=== PATIENT | female | born 1955 | race Caucasian/White ===

== ENCOUNTER 2021-08-16 16:23 | Outpatient (CLI) | payer MEDICARE, SELFPAY | END 2021-08-16 16:24 | disposition home or self-care (01) | LOC: AMB 08-27 08:41 | PROVIDERS: PCP Family Medicine; Visit Provider Emergency Medicine | DX: R53.1 Weakness (principal); R62.7 Adult failure to thrive | CPT/HCPCS: A0425; A0427 ==

== ENCOUNTER 2021-08-16 17:01 | Inpatient (IN) | payer MEDICARE, SELFPAY ==
[2021-08-16] VITALS (7 sets, daily range): BP systolic 56–124; BP diastolic 41–84; PULSE 84–98; RESP 14–20; TEMP 36.3–36.6; O2SAT 94–98; BMI 25.4
--- NOTE | 2021-08-16 19:12 | ED.NURSE ---
1909-Report received from Genna, RN. Sats 88-89% on RA. O2 applied via NC 2LPM, Sats 96%. 1911- MD at bedside for exam. Brother at bedside.
--- NOTE | 2021-08-16 19:17 | CRLHL7_ITS ---
For Patients: As a result of the Century Cures Act, medical imaging exams and procedure reports are released immediately into your electronic medical record. You may view this report before your referring provider. If you have questions, please contact your health care provider. INDICATION: Shortness of breath. TECHNIQUE: Chest 1 views. COMPARISON: June 29, 2014. FINDINGS: Cardiovascular and mediastinum: Heart size and vasculature are normal in caliber and appearance. Lungs and pleural spaces: Left lower lobe, retrocardiac opacity is noted. Small left-sided pleural effusion. Bones and soft tissues: Demineralization of the visualized bones. Irregularity of some right-sided ribs may be related to rib fracture, incompletely evaluated on this single view... IMPRESSION: Left lower lobe opacity may be related to atelectasis aspiration or infection. Small left pleural effusion. Irregularity of some ribs may be related to underlying fracture, incompletely evaluated on this single view of the chest. Dictated by Rebecca Ferro MD @ 08/16/2021 8:34:17 PM (Electronically Signed)
--- NOTE | 2021-08-16 19:19 | ED_ITS ---
HPI - General Adult General Time Seen by Provider: 19:18 Date Seen: 08/16/21 Chief complaint: Unspecified Complaint, Adult Stated complaint: Failure to Thrive Time Seen by Provider: 08/16/21 19:07 Source: patient and family History of Present Illness HPI narrative: This 65-year-old female comes in with her brother because of failure to thrive. The patient herself is very hard of hearing and repeatedly states that she is fine and wants to go home. Her brother states that she fell a couple months ago and injured her ribs. Since then her mother who is in her 80s has been coming every day to check on her. The patient lives alone in an apartment and has a history of alcoholism. She weighs less than 70 lb and has been losing weight. Her brother does not know how she could be able to care for herself. The current scenario of her elderly mother coming over every day is not working sufficiently. Her brother states that she is DNR DNI and does not wish to have any her row can measures in treatment. Related Data Home Medications Medication Instructions Recorded Confirmed gabapentin 300 mg capsule 300 mg PO .Q24 08/16/21 08/16/21 Review of Systems Narrative: Unable to obtain due to hardness of hearing and mental status. The patient repeatedly states that she is fine and wants to go home. PFSH PFSH Social History Smoking Status: Current every day smoker What tobacco products do you use: cigarettes Do you use any of these nicotine containing products: Vaping Products Second hand tobacco smoke exposure: No How often do you have a drink containing alcohol: 4 or more times a week How many standard drinks containing alcohol do you have on a typical day: 3 or 4 How often do you have six or more drinks on one occasion: Less than monthly AUDIT-C Alcohol total score: 6 Non-prescribed substance use: marijuana (any form) Exam 2 Narrative: Exam Narrative: Constitutional: Cachectic. Poorly nourished. No acute distress. HEENT: Normocephalic, atraumatic. Neck: Normal range of motion. Nontender. Supple. Heart: Regular. No murmurs. Normal rate. Intact distal pulses. Lungs: No chest discomfort. Bilateral rhonchi. Abdomen: Normal bowel sounds. Nontender. No rebound tenderness. Genitalia: Deferred. Back: No midline tenderness. Normal range of motion. Extremities: Normal range of motion. No injury. Skin: Intact. No rash. Warm. No erythema or pallor. Neurologic: No altered sensation. No weakness. Alert and oriented. Very hard of hearing. Psychiatric: No suicidality. No anxiety or depression. No insomnia. Nursing notes and vitals signs are reviewed. Const: Vital Signs, click to edit/add: Vital Signs - 24 hr 08/16/21 17:18 08/16/21 19:15 Temperature 97.3 F L Pulse Rate [Right Pulse Oximeter] 90 98 Respiratory Rate 20 20 Blood Pressure [Le ft Upper Arm] 56/41 L 108/73 Pulse Oximetry 98 96 Course Vital Signs Vital signs: Initial Vital Signs Temperature 97.3 F L 08/16/21 17:18 Temperature Source Temporal Artery Scan 08/16/21 17:18 Pulse Rate 90 08/16/21 17:18 Respiratory Rate 20 08/16/21 17:18 Blood Pressure 56/41 L 08/16/21 17:18 Blood Pressure Mean 46 08/16/21 17:18 Blood Pressure Position Right Lateral 08/16/21 17:18 Pulse Oximetry 98 08/16/21 17:18 Oxygen Delivery Method 08/16/21 17:18 Vital Signs Temperature 97.3 F L 08/16/21 17:18 Pulse Rate 90 08/16/21 17:18 Respiratory Rate 20 08/16/21 17:18 Blood Pressure 56/41 L 08/16/21 17:18 Pulse Oximetry 98 08/16/21 17:18 Temperature 97.3 F L 08/16/21 17:18 Pulse Rate 98 08/16/21 19:15 Respiratory Rate 20 08/16/21 19:15 Blood Pressure 108/73 08/16/21 19:15 Pulse Oximetry 96 08/16/21 19:15 Medical Decision Making MDM Narrative Medical decision making narrative: This patient comes in with her brother because of weakness and failure to thrive. An IV was established where she received a L of normal saline intravenously. Lab results returned with notable abnormalities in her electrolytes. In particular her sodium is at 121. I spoke with the hospitalist instrumentation and controls technician, Dr. Fisher, who will arrange for her admission to attend to this matter. Lab Data Lab results reviewed: Yes I reviewed the patient's lab results Labs: Lab Results 08/16/21 08/16/21 Range/Units 20:02 20:02 WBC 12.37 H (4.50-11.00) K/uL RBC 4.07 (4.00-5.20) m/uL Hgb 13.7 (12.0-16.0) gm/dL Hct 39.6 (33.0-51.0) % MCV 97 (80-100) fL MCH 34 (26-34) pg MCHC 35 (32-36) gm/dL RDW Coeff of Amada 12.4 (11.5-15.5) % Plt Count 180 (140-440) K/uL Neut % (Auto) 86.6 H (42.0-72.0) % Lymph % (Auto) 7.4 L (20-44) % Jewell % (Auto) 5.6 (0.0-11.0) % Eos % (Auto) 0.0 (0.0-7.0) % Baso % (Auto) 0.0 (0.0-3.0) % Neut # (Auto) 10.70 H (1.7-7.0) K/uL Lymph # (Auto) 0.90 (0.90-2.90) K/uL Jewell # (Auto) 0.70 (0.00-0.90) K/UL Eos # (Auto) 0.00 (0.00-0.50) K/uL Baso # (Auto) 0.00 (0.00-0.30) K/uL Abs Immat Gran (auto) 0.05 (0.00-0.30) K/uL Sodium 121 L* (135-149) mmol/L Potassium 3.2 L (3.6-5.1) mmol/L Chloride 91 L (96-114) mmol/L Carbon Dioxide 19 L (20-32) mmol/L BUN 5 L (7-30) mg/dL Creatinine 0.4 L (0.5-1.5) mg/dL Glucose 54 L (60-115) mg/dL Calcium 7.2 L (8.4-10.6) mg/dL Total Bilirubin 1.2 (0.1-1.5) mg/dL Direct Bilirubin 0.5 (0.0-0.5) mg/dL AST 37 H (12-35) U/L ALT 15 (4-35) U/L Alkaline Phosphatase 65 (40-150) U/L Ammonia < 9.0 L (13.1-30.0) umol/L Total Protein 5.0 L (6.0-8.3) g/dL Albumin 2.9 L (3.3-5.0) g/dL Imaging Data Chest x-ray: My impression: Chest x-ray shows decreased lung volume on the left with some small amount of effusion by my review. Bowel G report is pending. Discharge Plan Discharge Clinical Impression: Hyponatremia Patient Disposition: Admitted As Inpatient Condition: Unchanged Prescriptions: No Action gabapentin 300 mg capsule 300 mg PO .Q24 0RF Label Comments: TAKE ONE CAPSULE BY MOUTH TWICE A DAY *FOLLOW UP NEEDED* Follow Up/Referrals: Tim Rodrigez MD [Primary Care Provider] -
[2021-08-16] MEDS: 0.9 % SODIUM CHLORIDE 1000 ml 1,000 ML IV (19:45)
[2021-08-16 20:08] LABS: Hematocrit 39.6 % (33.0-51.0); Hemoglobin* 13.7 gm/dL (12.0-16.0); Immature Granulocytes Abs Auto 0.05 K/uL (0.00-0.30); Lymphocytes Percent Auto 7.4 % (20-44); Mean Corpuscular HGB Conc 35 gm/dL (32-36); Mean Corpuscular Hemoglobin 34 pg (26-34); Mean Corpuscular Volume 97 fL (80-100); Monocytes Percent Auto 5.6 % (0.0-11.0); Neutrophils Percent Auto 86.6 % (42.0-72.0); Platelet Count* 180 K/uL (140-440); RDW Coefficient of Variation % 12.4 % (11.5-15.5); Red Blood Count 4.07 m/uL (4.00-5.20); White Blood Count* 12.37 K/uL (4.50-11.00)
[2021-08-16 20:09] LABS: Slide Review Reflex No
[2021-08-16 20:23] LABS: Albumin* 2.9 g/dL (3.3-5.0); Chloride* 91 mmol/L (96-114)
[2021-08-16 20:24] LABS: Potassium* 3.2 mmol/L (3.6-5.1)
[2021-08-16 20:25] LABS: Creatinine* 0.4 mg/dL (0.5-1.5); Estimated Glomerular Filt Rate 108.41
[2021-08-16 20:26] LABS: Alanine Aminotransferase* 15 U/L (4-35); Alkaline Phosphatase* 65 U/L (40-150); Aspartate Amino Transferase* 37 U/L (12-35); Bilirubin Direct* 0.5 mg/dL (0.0-0.5); Bilirubin Total* 1.2 mg/dL (0.1-1.5); Blood Urea Nitrogen* 5 mg/dL (7-30); Calcium* 7.2 mg/dL (8.4-10.6); Carbon Dioxide* 19 mmol/L (20-32); Glucose* 54 mg/dL (60-115)
[2021-08-16 20:28] LABS: Ammonia* < 9.0 umol/L (13.1-30.0); Sodium* 121 mmol/L (135-149)
[2021-08-16 20:54] LABS: SARS PCR* Negative SARS-CoV-2 (Negative)
[2021-08-16 21:08] LABS: Magnesium* 1.4 mg/dL (1.5-2.6)
--- NOTE | 2021-08-16 21:23 | P.IMHP_ITS ---
Hospitalist- H&P: HPI History of Present Illness Time Seen by Provider: 21:00 Date Seen: 08/16/21 Chief complaint: Failure to Thrive Narrative: Elizabeth Flanagan is a 65 year old female presents to the emergency room with her brother because of failure to thrive. Patient reports that she has no problems and would like to go home. Her brother reports that she has had a problem with falling. She apparently fell and injured her ribs a couple months ago by his re port. She tells me she fell a couple weeks ago. She lives alone and her family is concerned she cannot take care of herself. Family reports she has been losing weight. Our records indicate her last weight was May of 2014 at 40.8 kg and now weighs 36.3 kg. She denies any problems with eating, loss of appetite, nausea or vomiting, diarrhea or constipation, bloody stools or melena. she does report that she has chronic shortness of breath and a chronic cough. She thinks her shortness of breath may be worse more recently. She is not aware of a fever. She has chest pain where she hurt her ribs in the recent past. She tells me she has pain on the left side of her chest in the front and in the back. Review of Systems Narrative: she reports having no concerns except as noted above. She reports she is doing well at home. [facility] Medical History Alcohol abuse At risk for falls Foot drop, right Frailty syndrome in geriatric patient Left rib fracture Loss of consciousness Malnutrition Neuropathy Smoking Social History (Updated 08/16/21 @ 21:40 by Alexx Fisher MD) Narrative: She lives alone in her own home. Her mother checks on her every day. She has no primary care doctor. She previously saw a neurologist for management of her neuropathy and footdrop and her spells. It appears she has not seen a doctor in at least 2 years. she walks with a walker or a cane . She does not drive. She has a cab to get groceries. Smoking Status: Current every day smoker What tobacco products do you use: cigarettes Do you use any of these nicotine containing products: Vaping Products Second hand tobacco smoke exposure: No How often do you have a drink containing alcohol: 4 or more times a week How many standard drinks containing alcohol do you have on a typical day: 3 or 4 How often do you have six or more drinks on one occasion: Less than monthly AUDIT-C Alcohol total score: 6 Non-prescribed substance use: marijuana (any form) Meds Home Medications and Allergies Home Medications Medication Instructions Recorded Confirmed Type gabapentin 300 mg capsule 300 mg PO .Q24 08/16/21 08/16/21 History Exam Narrative: Exam Narrative: She is alert and appears in no distress. Head is without apparent trauma. Eyes are normal. She has bilateral cataracts. Pupils are equal round reactive to light. Extraocular movements are full. Visual simmons appear intact. Oropharynx with dental loss and dry mucous membranes. She has no facial asymmetry. She is very hard of hearing. Neck is supple without mass or adenopathy. Respirations with a few left basilar crackles. She has somewhat diminished breath sounds without marked wheezing. Cardiovascular: S1, S2, regular rate and rhythm. No murmur gallop or rub. Abdomen: Bowel sounds active. Abdomen is soft without tenderness or mass. External genitalia normal. Palpation over her back and chest wall shows tenderness from the mid back around the left ribs to the anterolateral left chest below her left breast. No obvious bruising. Extremities are somewhat cool to touch. She has intact sensation but reports diminished sensation in her left foot due to neuropathy. She moves all 4 extremities well without focal weakness. She has no edema. No rash Const: Vital Signs, click to edit/add: Vital Signs - 24 hr 08/16/21 17:18 08/16/21 19:15 08/16/21 20:00 Temperature 97.3 F L Pulse Rate [Right Pulse Oximeter] 90 98 85 Respiratory Rate 20 20 14 Blood Pressure [Le ft Upper Arm] 56/41 L 108/73 114/80 Pulse Oximetry 98 96 94 Documenting provider has reviewed patient's vital signs: yes Hospitalist - H&P: Result Labs Labs: Short CBC 08/16/21 Range/Units 20:02 WBC 12.37 H (4.50-11.00) K/uL Hgb 13.7 (12.0-16.0) gm/dL Hct 39.6 (33.0-51.0) % Plt Count 180 (140-440) K/uL BMP 08/16/21 20:02 Sodium 121 L* Potassium 3.2 L Chloride 91 L Carbon Dioxide 19 L BUN 5 L Creatinine 0.4 L Glucose 54 L Calcium 7.2 L Liver Function 08/16/21 Range/Units 20:02 Total Bilirubin 1.2 (0.1-1.5) mg/dL Direct Bilirubin 0.5 (0.0-0.5) mg/dL AST 37 H (12-35) U/L ALT 15 (4-35) U/L Alkaline Phosphatase 65 (40-150) U/L Albumin 2.9 L (3.3-5.0) g/dL Assessment and Plan Assessment and plan (1) Left rib fracture: Problem comment: clinically suspected and radiographically suspected Status: Acute Assessment and Plan: obtain CT scan to further evaluate for chest wall injury and underlying infiltrate or pleural effusion. (2) At risk for falls: Status: Acute Assessment and Plan: PT and OT to assess (3) Smoking: Status: Acute Assessment and Plan: may have underlying COPD. Chest CT pending. Trial albuterol (4) Alcohol abuse: Status: Acute Assessment and Plan: [facility] protocol (5) Malnutrition: Status: Acute Assessment and Plan: nutrition consult (6) Hyponatremia: Status: Acute Assessment and Plan: likely chronic. Slow correction recommended. Fluid restriction. Likely contributing to other problems above. I suspect dietary causes including alcohol and tea and toast diet as major contributors. (7) Frailty syndrome in geriatric patient: Status: Acute Assessment and Plan: consult director social service for discharge plan
[2021-08-16 22:23] LABS: D Dimer Quantitative* 0.57 ug/ml (0.00-0.50)
--- NOTE | 2021-08-16 22:41 | ED.NURSE ---
2210-Report given to CARITO Bruce. Pt transported via cart to Rm 259 on O2 2LPM via NC, tolerates well. No belongings in room.
[2021-08-16 22:54] LABS: Sodium* 122 mmol/L (135-149)
[2021-08-16 23:41] LABS: Procalcitonin* 0.09 ng/mL (<0.50)
[2021-08-17] VITALS (9 sets, daily range): BP systolic 87–120; BP diastolic 63–77; PULSE 84–107; RESP 18–22; TEMP 36.1–36.9; O2SAT 91–96; BMI 11.2
[2021-08-17] MEDS: MAGNESIUM SULFATE 2 GM/50 ML PIGGYBACK IVPB (00:22)
[2021-08-17] MEDS: POTASSIUM CHLORIDE 10 MEQ CAPSULE ER 40 MEQ PO (00:23)
[2021-08-17 05:25] LABS: Appearance Urine Slightly Cloudy (Clear); Bilirubin Urine 1+ (Negative); Blood Urine Negative (Negative); Color Urine Yellow (Yellow); Glucose Urine Negative (Negative); Ketones Urine 4+ (Negative); Leukocyte Esterase Urine Negative (Negative); Nitrite Urine Negative (Negative); Protein Urine Trace (Negative); Specific Gravity Urine >= 1.030 (1.000-1.030)
[2021-08-17 05:34] LABS: RBC Urine 0-2 (0-2); WBC Urine 0-2 (0-5)
[2021-08-17 05:35] LABS: Amorphous Sediment Urine Few; Bacteria Urine Moderate; Hyaline Casts Urine Few (None-Few); Squamous Epithelial Cell Urine Moderate (None-Few)
[2021-08-17 05:37] LABS: Amphetamine Screen Urine Negative (Negative); Barbiturate Screen Urine Negative (Negative); Benzodiazepines Screen Urine Negative (Negative); Cannabinoid Screen Urine POSITIVE (Negative); Cocaine Screen Urine Negative (Negative); Methadone Screen Urine Negative (Negative); Methamphetamines Screen Urine Negative (Negative); Opiate Screen Urine Negative (Negative); Oxycodone Screen Urine Negative (Negative); Phencyclidine Screen Urine Negative (Negative); Tricyclic Antidepressant Urine Negative (Negative)
--- NOTE | 2021-08-17 07:27 | PC.NURSE ---
Shift note: The pt has been on 2L of oxygen via NC throughout the night with Spo2 in the 90s. She has been reporting mild right lateral pain. Stage 2 ulcer noted to left thigh ; covered with Mepilex. She has been turned and repositioned. The pt [place] 1-ass[place] [facility] [place] She appeared weak and lethargic.
--- NOTE | 2021-08-17 08:00 | CRLHL7_ITS ---
For Patients: As a result of the Century Cures Act, medical imaging exams and procedure reports are released immediately into your electronic medical record. You may view this report before your referring provider. If you have questions, please contact your health care provider. Indication: Evaluate infiltrate, question rib fracture, effusion. Technique: CT of the chest without IV contrast. Coronal and sagittal reconstructions. Comparison: Chest radiograph 08/16/2021. Findings: Normal heart size. Normal caliber thoracic aorta and central pulmonary arteries. Coronary artery and aortic vascular calcifications. Mitral annulus calcifications. No pericardial effusion. No thoracic lymphadenopathy. The thyroid gland is normal in appearance. Small left pleural effusion. There is a dense consolidation with air bronchograms in the left lower lobe compatible with pneumonia. Subtle nodular ground-glass opacities in the left lower lobe and posterior left upper lobe are likely infectious or inflammatory. Atelectasis along the left major fissure. Right apical pleural scarring. No pneumothorax. 3 mm noncalcified pulmonary nodule in the posterior right upper lobe (series 4, image 26). 2 mm noncalcified pulmonary nodule in the superior segment of the right lower lobe (image 30). 2 mm noncalcified pulmonary nodule in the lateral right lower lobe (image 65). Debris in the lower trachea. The visualized unenhanced upper abdomen is unremarkable. Degenerative changes of the spine with exaggerated thoracic kyphosis. There are multiple moderate to severe thoracic and lumbar compression fractures, most of which appear chronic. There is sclerosis in the T7 and T9 vertebral bodies which could suggest acute or subacute fractures. No significant retropulsion. Old left lateral rib fractures. No acute rib fracture identified. Impression: 1. Dense consolidation with air bronchograms in the left lower lobe compatible with pneumonia. Debris in the lower trachea suggesting aspiration. 2. Subtle nodular ground-glass opacities in the left lower lobe and posterior left upper lobe are likely infectious or inflammatory. 3. Small left pleural effusion. 4. Few small noncalcified pulmonary nodules measuring up to 3 mm. Please see follow-up guidelines below. 5. Multiple moderate to severe thoracic and lumbar compression fractures. Fractures of the T7 and T9 vertebral bodies may be acute or subacute. [employer] - SOLID NODULES: : MULTIPLE LOW RISK - nodule less than 6 mm: No routine follow-up. - nodule 6-8 mm: CT at 3-6 months, then consider CT at 18-24 months. - nodule greater than 8 mm: CT at 3-6 months, then consider CT at 18-24 months. MULTIPLE HIGH RISK - nodule less than 6 mm: Optional CT at 12 months. - nodule 6-8 mm: CT at 3-6 months, then at 18-24 months. - nodule greater than 8 mm: CT at 3-6 months, then at 18-24 months. Please note that all CT scans at this facility use dose modulation, iterative reconstruction, and/or weight-based dosing when appropriate to reduce radiation dose to as low as reasonably achievable. Dictated by Magy Duffy MD @ 08/17/2021 9:08:34 AM (Electronically Signed)
[2021-08-17] MEDS: MULTIVITAMIN/MINERALS 1 TABLET 1 TAB PO (10:00)
[2021-08-17] MEDS: FOLIC ACID 1 MG TABLET PO (10:00)
[2021-08-17] MEDS: SENNOSIDES/DOCUSATE TABLET 1 TAB PO (10:01)
[2021-08-17] MEDS: THIAMINE 100 MG TABLET 250 MG PO ×2 (10:06→21:20)
[2021-08-17] MEDS: IPRAT-ALBUT 0.5-2.5 MG/3 ML NEB 1 NEB IH ×4 (10:06→21:21)
[2021-08-17] MEDS: GABAPENTIN 300 MG CAPSULE PO ×2 (10:08→21:21)
[2021-08-17 11:28] LABS: Hematocrit 39.9 % (33.0-51.0); Hemoglobin* 13.8 gm/dL (12.0-16.0); Immature Granulocytes Abs Auto 0.05 K/uL (0.00-0.30); Lymphocytes Percent Auto 5.3 % (20-44); Mean Corpuscular HGB Conc 35 gm/dL (32-36); Mean Corpuscular Hemoglobin 34 pg (26-34); Mean Corpuscular Volume 98 fL (80-100); Monocytes Percent Auto 6.7 % (0.0-11.0); Neutrophils Percent Auto 87.7 % (42.0-72.0); Platelet Count* 192 K/uL (140-440); RDW Coefficient of Variation % 12.4 % (11.5-15.5); Red Blood Count 4.08 m/uL (4.00-5.20); White Blood Count* 14.36 K/uL (4.50-11.00)
[2021-08-17 11:29] LABS: Slide Review Reflex No
[2021-08-17 11:46] LABS: Albumin* 3.2 g/dL (3.3-5.0)
[2021-08-17 11:47] LABS: Chloride* 95 mmol/L (96-114); Sodium* 126 mmol/L (135-149)
[2021-08-17 11:49] LABS: Aspartate Amino Transferase* 41 U/L (12-35); Bilirubin Total* 1.2 mg/dL (0.1-1.5); Carbon Dioxide* 17 mmol/L (20-32); Creatinine* 0.4 mg/dL (0.5-1.5); Est. Creatinine Clearance* 27.17; Estimated Glomerular Filt Rate 108.41
[2021-08-17 11:50] LABS: Alanine Aminotransferase* 17 U/L (4-35); Alkaline Phosphatase* 71 U/L (40-150); Blood Urea Nitrogen* 4 mg/dL (7-30); Calcium* 7.8 mg/dL (8.4-10.6); Glucose* 64 mg/dL (60-115); Total Protein* 5.4 g/dL (6.0-8.3)
--- NOTE | 2021-08-17 12:20 | P.IMPN_ITS ---
Progress Note: A&P Assessment and plan (1) Vertebral compression fracture: Status: Acute Assessment and Plan: Still having midline back pain in the lower thoracic spine on palpation indicating probable some recent fracture (2) Left rib fracture: Problem details: clinically suspected and radiographically suspected Status: Acute Assessment and Plan: still having tenderness over her left-sided ribs but fractures are probably 1 to 2-month-old (3) Frailty syndrome in geriatric patient: Status: Acute Assessment and Plan: continue to assess. Appears not to be safe to live alone based on frailty and dementia (4) Left lower lobe pulmonary infiltrate: Status: Acute Assessment and Plan: ceftriaxone and azithromycin (5) Hypokalemia: Status: Acute Assessment and Plan: continue to monitor and replace (6) Hypomagnesemia: Status: Acute Assessment and Plan: continue to monitor and replace (7) Dementia: Problem details: [place] 02/15 in July 2021 Status: Acute Assessment and Plan: probably not safe to be independent (8) At risk for falls: Status: Acute Assessment and Plan: continue to assess (9) Alcohol abuse: Status: Acute Assessment and Plan: likely to be an ongoing problem if patient remains independent (10) Malnutrition: Status: Acute Assessment and Plan: continues to be a problem (11) Hyponatremia: Status: Acute Assessment and Plan: continue to monitor and manage with fluid restriction Subjective Time Seen by Provider: 12:19 Date Seen: 08/17/21 Interval history: patient reports feeling fine. She has no concerns. When pressed she does agree that she is short of breath and coughing. She has had nothing to eat today because she reports no appetite. This does not bother her. She minimizes the pain in her back and ribs. CT scan last night showed left lower lobe pneumonia, pulmonary nodules, multiple vertebral and lumbar compression fractures, old left rib fractures, debris in the trachea suggesting aspiration. OT evaluation scored a [place] of 02/15. Exam Narrative: Exam Narrative: She is alert and appears in no distress. Hard of hearing but communicates much better with the pocket talker. Respirations notable for audible rhonchi without a stethoscope and prominent left-sided crackles. No wheezing. Cardiovascular: S1, S2, regular rhythm. Abdomen: Bowel sounds active. Abdomen is soft without tenderness or mass. External genitalia normal. Extremities without edema or tenderness. Still cool extremities. Const: Vital Signs, click to edit/add: Vital Signs - 24 hr 08/16/21 17:18 08/16/21 19:15 08/16/21 20:00 Temperature 97.3 F L Pulse Rate Pulse Rate [Bilate ral Dorsalis Pedis ] Pulse Rate [Right Pulse Oximeter] 90 98 85 Pulse Rate [Right Radial] Respiratory Rate 20 20 14 Blood Pressure Blood Pressure [Le ft Arm] Blood Pressure [Le ft Upper Arm] 56/41 L 108/73 114/80 Pulse Oximetry 98 96 94 08/16/21 21:00 08/16/21 22:00 08/16/21 22:10 Temperature 97.3 F L Pulse Rate 87 Pulse Rate [Bilate ral Dorsalis Pedis ] Pulse Rate [Right Pulse Oximeter] 87 87 Pulse Rate [Right Radial] Respiratory Rate 14 14 14 Blood Pressure 93/72 Blood Pressure [Le ft Arm] Blood Pressure [Le ft Upper Arm] 124/84 93/72 Pulse Oximetry 97 96 08/16/21 22:56 08/17/21 00:50 08/17/21 01:00 Temperature 98 F 97.4 F L Pulse Rate Pulse Rate [Bilate ral Dorsalis Pedis ] 90 Pulse Rate [Right Pulse Oximeter] Pulse Rate [Right Radial] 84 90 Respiratory Rate 18 18 18 Blood Pressure Blood Pressure [Le ft Arm] 107/67 97/69 Blood Pressure [Le ft Upper Arm] Pulse Oximetry 95 92 91 08/17/21 04:30 08/17/21 04:35 08/17/21 07:00 Temperature 97.7 F 97.7 F 97.8 F Pulse Rate Pulse Rate [Bilate ral Dorsalis Pedis ] 90 90 98 Pulse Rate [Right Pulse Oximeter] Pulse Rate [Right Radial] 90 90 Respiratory Rate 18 18 22 Blood Pressure Blood Pressure [Le ft Arm] 97/68 97/68 120/76 Blood Pressure [Le ft Upper Arm] Pulse Oximetry 93 93 93 08/17/21 11:00 Temperature 97 F L Pulse Rate Pulse Rate [Bilate ral Dorsalis Pedis ] 94 Pulse Rate [Right Pulse Oximeter] Pulse Rate [Right Radial] Respiratory Rate 22 Blood Pressure Blood Pressure [Le ft Arm] 113/75 Blood Pressure [Le ft Upper Arm] Pulse Oximetry 94 Labs Labs: Laboratory Results - last 24 hr 08/16/21 08/16/21 08/16/21 19:47 20:02 20:02 WBC 12.37 H RBC 4.07 Hgb 13.7 Hct 39.6 MCV 97 MCH 34 MCHC 35 RDW Coeff of Amada 12.4 Plt Count 180 Neut % (Auto) 86.6 H Lymph % (Auto) 7.4 L Marion % (Auto) 5.6 Eos % (Auto) 0.0 Baso % (Auto) 0.0 Neut # (Auto) 10.70 H Lymph # (Auto) 0.90 Marion # (Auto) 0.70 Eos # (Auto) 0.00 Baso # (Auto) 0.00 Abs Immat Gran (auto) 0.05 D-Dimer Quant (PE/DVT) Sodium 121 L* Potassium 3.2 L Chloride 91 L Carbon Dioxide 19 L BUN 5 L Creatinine 0.4 L Estimated Creat Clear Glucose 54 L Calcium 7.2 L Magnesium 1.4 L Total Bilirubin 1.2 Direct Bilirubin 0.5 AST 37 H ALT 15 Alkaline Phosphatase 65 Ammonia < 9.0 L Total Protein 5.0 L Albumin 2.9 L Procalcitonin 0.09 TSH Urine Color Urine Appearance Urine pH Ur Specific [place] Urine Protein Urine Glucose (UA) Urine Ketones Urine Blood Urine Nitrite Urine Bilirubin Urine Urobilinogen Ur Leukocyte Esterase Urine RBC Urine WBC Ur Squamous Epith Cells Amorphous Sediment Urine Bacteria Hyaline Casts Urine Opiates Screen Ur Oxycodone Screen Urine Methadone Screen Ur Propoxyphene Screen Ur Barbiturates Screen U Tricyclic Antidepress Ur Phencyclidine Scrn Ur Amphetamines Screen U Methamphetamines Scrn U Benzodiazepines Scrn Urine Cocaine Screen U Marijuana (THC) Screen Ur Drug Screen Comment SARS-CoV-2 (PCR) Negative SARS-CoV-2 08/16/21 08/16/21 08/16/21 20:02 21:08 22:25 WBC RBC Hgb Hct MCV MCH MCHC RDW Coeff of Amada Plt Count Neut % (Auto) Lymph % (Auto) Marion % (Auto) Eos % (Auto) Baso % (Auto) Neut # (Auto) Lymph # (Auto) Marion # (Auto) Eos # (Auto) Baso # (Auto) Abs Immat Gran (auto) D-Dimer Quant (PE/DVT) 0.57 H Sodium 122 L* Potassium Chloride Carbon Dioxide BUN Creatinine Estimated Creat Clear Glucose Calcium Magnesium Total Bilirubin Direct Bilirubin AST ALT Alkaline Phosphatase Ammonia Total Protein Albumin Procalcitonin TSH 3.600 Urine Color Urine Appearance Urine pH Ur Specific [place] Urine Protein Urine Glucose (UA) Urine Ketones Urine Blood Urine Nitrite Urine Bilirubin Urine Urobilinogen Ur Leukocyte Esterase Urine RBC Urine WBC Ur Squamous Epith Cells Amorphous Sediment Urine Bacteria Hyaline Casts Urine Opiates Screen Ur Oxycodone Screen Urine Methadone Screen Ur Propoxyphene Screen Ur Barbiturates Screen U Tricyclic Antidepress Ur Phencyclidine Scrn Ur Amphetamines Screen U Methamphetamines Scrn U Benzodiazepines Scrn Urine Cocaine Screen U Marijuana (THC) Screen Ur Drug Screen Comment SARS-CoV-2 (PCR) 08/17/21 08/17/21 08/17/21 05:10 05:10 11:20 WBC 14.36 H RBC 4.08 Hgb 13.8 Hct 39.9 MCV 98 MCH 34 MCHC 35 RDW Coeff of Amada 12.4 Plt Count 192 Neut % (Auto) 87.7 H Lymph % (Auto) 5.3 L Marion % (Auto) 6.7 Eos % (Auto) 0.0 Baso % (Auto) 0.0 Neut # (Auto) 12.60 H Lymph # (Auto) 0.80 L Marion # (Auto) 1.00 H Eos # (Auto) 0.00 Baso # (Auto) 0.00 Abs Immat Gran (auto) 0.05 D-Dimer Quant (PE/DVT) Sodium Potassium Chloride Carbon Dioxide BUN Creatinine Estimated Creat Clear Glucose Calcium Magnesium Total Bilirubin Direct Bilirubin AST ALT Alkaline Phosphatase Ammonia Total Protein Albumin Procalcitonin TSH Urine Color Yellow Urine Appearance Slightly Cloudy A Urine pH 6.0 Ur Specific [place] >= 1.030 Urine Protein Trace A Urine Glucose (UA) Negative Urine Ketones 4+ A Urine Blood Negative Urine Nitrite Negative Urine Bilirubin 1+ A Urine Urobilinogen 1.0 Ur Leukocyte Esterase Negative Urine RBC 0-2 Urine WBC 0-2 Ur Squamous Epith Cells Moderate A Amorphous Sediment Few A Urine Bacteria Moderate A Hyaline Casts Few Urine Opiates Screen Negative Ur Oxycodone Screen Negative Urine Methadone Screen Negative Ur Propoxyphene Screen Negative Ur Barbiturates Screen Negative U Tricyclic Antidepress Negative Ur Phencyclidine Scrn Negative Ur Amphetamines Screen Negative U Methamphetamines Scrn Negative U Benzodiazepines Scrn Negative Urine Cocaine Screen Negative U Marijuana (THC) Screen POSITIVE A Ur Drug Screen Comment See Note SARS-CoV-2 (PCR) 08/17/21 11:20 WBC RBC Hgb Hct MCV MCH MCHC RDW Coeff of Amada Plt Count Neut % (Auto) Lymph % (Auto) Marion % (Auto) Eos % (Auto) Baso % (Auto) Neut # (Auto) Lymph # (Auto) Marion # (Auto) Eos # (Auto) Baso # (Auto) Abs Immat Gran (auto) D-Dimer Quant (PE/DVT) Sodium 126 L Potassium 4.0 Chloride 95 L Carbon Dioxide 17 L BUN 4 L Creatinine 0.4 L Estimated Creat Clear 27.17 Glucose 64 Calcium 7.8 L Magnesium Total Bilirubin 1.2 Direct Bilirubin AST 41 H ALT 17 Alkaline Phosphatase 71 Ammonia Total Protein 5.4 L Albumin 3.2 L Procalcitonin TSH Urine Color Urine Appearance Urine pH Ur Specific [place] Urine Protein Urine Glucose (UA) Urine Ketones Urine Blood Urine Nitrite Urine Bilirubin Urine Urobilinogen Ur Leukocyte Esterase Urine RBC Urine WBC Ur Squamous Epith Cells Amorphous Sediment Urine Bacteria Hyaline Casts Urine Opiates Screen Ur Oxycodone Screen Urine Methadone Screen Ur Propoxyphene Screen Ur Barbiturates Screen U Tricyclic Antidepress Ur Phencyclidine Scrn Ur Amphetamines Screen U Methamphetamines Scrn U Benzodiazepines Scrn Urine Cocaine Screen U Marijuana (THC) Screen Ur Drug Screen Comment SARS-CoV-2 (PCR)
[2021-08-17] MEDS: AZITHROMYCIN 250 MG TABLET 500 MG PO (12:36)
[2021-08-17] MEDS: cefTRIAXone 1 GM in 0.9 % SODIUM CHLORIDE Mini-bag 100 ML IVPB (12:36)
--- NOTE | 2021-08-17 15:58 | PC.SOCIAL ---
Social work: Met with pt regarding d/c plan. Pt states she lives in her own apartment at [facility] in [place]. Pt is hoping to return to her apartment at discharge. Pt states she takes care of herself and her household cleaning, cooking and chores by herself and has not required any assistance of family or friends at home. Pt states she has family who are local who could assist if needed but she does not expect to need help at discharge. Pt states she is not interested in a short term rehab stay if she needs assistance at discharge and plans to go home. Pt denies any safety concerns in her home. Received call from pt's brother, Kiel, who states he and the rest of the family do no think pt should be discharged home and are hoping she will agree to placement at a [facility] facility where she will have 24/7 care. Kiel states that prior to about 6 months ago, pt was independent in her own apartment. However, in the past six months, her ability to be mobile and independent has declined. Pt's 89 year old mother visits three times a week and helps pt to adjust in bed and brings her food. Mother reports pt has been in bed and stayed there every time she has visited in the last several weeks. Pt used to keep her apartment clean, but has not cleaned in several weeks. Per brother, pt has a refrigerator full of food but chooses to drink Mountain Dew and Beer instead of eating meals. Brother shared that pt was in substance treatment many years ago but that she was not interested in getting this help and did not change her behavior. Brother states pt smokes and vapes daily and he thinks she may be smoking or vaping marijuana. Brother states he has not reported her to the [facility] as a vulnerable adult but he is aware of this option if he feels she is unsafe at home. Brother shared that pt has completed an Advance Care Directive that names him as her healthcare agent if she is unable to make her own decisions. He will bring a copy of that to the hospital. Brother is hoping a POLST form can be completed during this hospital stay. Brother states pt is on disability and he thinks she has Medicare and Medical assistance but he does not think she has a medical insurance card as she has not received medical care in many years. Brother will ask other family members if anyone has additional medical insurance information. Brother hopes pt will go to a senior care from this hospital stay but is concerned her desire to smoke and drink will prevent her from agreeing to this level of care. research worker encyclopedia to follow up as needed.
--- NOTE | 2021-08-17 20:03 | PC.NURSE ---
Pt has Mepilex to L thigh- D/i. She denies hungry and refused each meal. Pt had bites of fruit and yogurt for supper. Brother updated with SS, for possible home with HC. Pt received Antibiotic see APR. Tolerates Nebs with slight improvement in Course LS. denies pain.
[2021-08-18] VITALS (16 sets, daily range): BP systolic 91–108; BP diastolic 61–77; PULSE 90–122; RESP 18–24; TEMP 36.4–37.1; O2SAT 71–100
--- NOTE | 2021-08-18 05:43 | PC.NURSE ---
Shift note: Pt ambulates with SBA and walker to the bathroom, sips of water overnight. She is afebrile, no complains of any kind overnight.
[2021-08-18 07:20] LABS: Basophils Percent Auto 0.1 % (0.0-3.0); Eosinophils Percent Auto 0.1 % (0.0-7.0); Hematocrit 36.4 % (33.0-51.0); Hemoglobin* 12.7 gm/dL (12.0-16.0); Immature Granulocytes Abs Auto 0.06 K/uL (0.00-0.30); Lymphocytes Percent Auto 7.1 % (20-44); Mean Corpuscular HGB Conc 35 gm/dL (32-36); Mean Corpuscular Hemoglobin 34 pg (26-34); Mean Corpuscular Volume 98 fL (80-100); Monocytes Percent Auto 9.3 % (0.0-11.0); Neutrophils Percent Auto 82.9 % (42.0-72.0); Platelet Count* 186 K/uL (140-440); RDW Coefficient of Variation % 12.8 % (11.5-15.5); Red Blood Count 3.73 m/uL (4.00-5.20); White Blood Count* 11.57 K/uL (4.50-11.00)
[2021-08-18 07:25] LABS: Slide Review Reflex No
[2021-08-18 07:53] LABS: Chloride* 94 mmol/L (96-114)
[2021-08-18 07:54] LABS: Potassium* 3.7 mmol/L (3.6-5.1); Sodium* 125 mmol/L (135-149)
[2021-08-18 07:56] LABS: Blood Urea Nitrogen* 3 mg/dL (7-30); Carbon Dioxide* 24 mmol/L (20-32); Creatinine* 0.4 mg/dL (0.5-1.5); Est. Creatinine Clearance* 27.15; Estimated Glomerular Filt Rate 108.41
[2021-08-18 07:57] LABS: Calcium* 7.8 mg/dL (8.4-10.6); Glucose* 94 mg/dL (60-115); Magnesium* 1.6 mg/dL (1.5-2.6)
[2021-08-18] MEDS: IPRAT-ALBUT 0.5-2.5 MG/3 ML NEB 1 NEB IH ×4 (08:26→21:41)
[2021-08-18] MEDS: THIAMINE 100 MG TABLET 250 MG PO (08:36)
[2021-08-18] MEDS: MULTIVITAMIN/MINERALS 1 TABLET 1 TAB PO (08:37)
[2021-08-18] MEDS: GABAPENTIN 300 MG CAPSULE PO (08:37)
[2021-08-18] MEDS: FOLIC ACID 1 MG TABLET PO (08:37)
--- NOTE | 2021-08-18 09:09 | CRLHL7_ITS ---
For Patients: As a result of the Century Cures Act, medical imaging exams and procedure reports are released immediately into your electronic medical record. You may view this report before your referring provider. If you have questions, please contact your health care provider. Indication: Hypoxia Technique: Portable chest Comparison: Chest x-ray 07/20/2021 Findings: Enlarged cardiac silhouette. Posterior left rib fractures age indeterminate probably subacute or older. Basilar atelectasis. No pneumothorax. No large effusion. Interval moderate clearing in the left lower lobe Dictated by Pamella Arellano MD @ 08/18/2021 10:47:06 AM (Electronically Signed)
[2021-08-18 10:09] LABS: HCO3 VBG 23 mmol/L (21-28); PCO2 VBG 37 mmHG (40-50); PO2 VBG 42.3 mmHG (25-47); pH VBG 7.407 (7.32-7.43)
[2021-08-18] MEDS: METHYLPREDNISOLONE SOD SUCC 40 MG/ML IVP (10:39)
[2021-08-18] MEDS: PIPERACILLIN/TAZOBACTAM 3.375 GM in 0.9 % SODIUM CHLORIDE Mini-bag 100 ML IVPB (10:39)
[2021-08-18] MEDS: AZITHROMYCIN 250 MG TABLET PO (10:40)
[2021-08-18 10:49] LABS: NT Pro B Type NatriureticPept* 557 PG/mL (0-125)
[2021-08-18 10:50] LABS: D Dimer Quantitative* 1.35 ug/ml (0.00-0.50)
[2021-08-18 10:53] LABS: Troponin I* < 0.01 ng/mL (0.01-0.04)
--- NOTE | 2021-08-18 11:09 | PM.IMPN1 ---
Progress Note: A&P Assessment and plan (1) Sepsis with acute hypoxic respiratory failure: Status: Acute Assessment and Plan: sepsis and hypoxic respiratory failure due to pneumonia primarily. Worse overnight so will increase intensity of antibiotic therapy and oxygen admission with high-flow nasal cannula. Discussion with her brother/ healthcare [id number] is that she would not want any more aggressive treatment. May not even want any life-prolonging treatment if she could fully understand her loss of independence going forward. Continue revisiting goals of care and her recovery from what is still probably a reversible condition (2) Pneumonia: Status: Acute Assessment and Plan: high-flow oxygen, CCU admission, Pipracil and tazobactam (3) Dementia: Problem details: [place] 02/15 in July 2021 Status: Acute Assessment and Plan: patient appears unable to understand the full complexity of her illness. She appears to want life-prolonging treatment at this point but that is in the context of also wanting to return to her previous life of independence which no longer seems feasible. (4) Hypomagnesemia: Status: Acute Assessment and Plan: Improved (5) Hypokalemia: Status: Acute Assessment and Plan: improved (6) Hyponatremia: Status: Acute Assessment and Plan: stable, continue fluid restriction and monitoring (7) Malnutrition: Status: Acute Assessment and Plan: continue to address in the context of aspiration risk (8) Alcohol abuse: Status: Acute Assessment and Plan: no evidence of withdrawal (9) Frailty syndrome in geriatric patient: Status: Acute Assessment and Plan: due to frailty, multiple illnesses and dementia does not appear safe to be living independently (10) Aspiration into lower respiratory tract: Status: Acute Assessment and Plan: speech/ swallowing consult and thickened liquids and pureed solids (11) At risk for venous thromboembolism (VTE): Status: Acute Assessment and Plan: will use enoxaparin temporarily for VTE risk. 30 mg daily is therapeutic dose (12) COPD (chronic obstructive pulmonary disease): Status: Acute Assessment and Plan: patient likely has COPD from smoking though not obviously having exacerbation at this time. I did give her 1 dose of Solu-Medrol for her respiratory failure. Use nebulizer treatments as well to see if she responds. Time Spent With Patient Total time spent: total time spent today is 95 minutes in critical care Subjective Time Seen by Provider: 11:08 Date Seen: 08/18/21 Interval history: 65-year-old female seen in followup of hypoxic respiratory failure, pneumonia, dementia, frailty. Patient has clinically worsened with hypoxic respiratory failure. She is requiring increasing amounts of oxygen to maintain her O2 sats. She denies any symptoms. Due to dementia her history is quite unreliable. She is observed to have a course cough but unable to cough up any secretions due to being weak. I spoke to her brother, Kiel Pritchard, her healthcare power of mergers and acquisitions attorney. Given the patient's dementia I do not believe she is competent to make healthcare decisions and have relied on him to make decisions. He is quite adamant that she would want no attempt at resuscitation and no intubation for respiratory failure. He thinks that if she understood that her life will never return to independent living in her own home that she would also choose to have no life-prolonging treatment. We discussed this at length and have agreed that we will continue oxygen and IV medications for now and revisit this issue going forward. I have asked him to visit her In the hospital if we are going to make a decision to withdraw life prolonging treatment. She is transferred to the CCU for increase intensity of monitoring and management of hypoxic respiratory failure. Exam Narrative: Exam Narrative: she is sitting up in a chair in obvious respiratory distress with increased rate and work of breathing. She has loud rhonchus breath sounds but unable to cough up the secretions in her airway. Auscultation of her lungs shows crackles primarily at the right lung base with diffuse intermittent rhonchi. No marked wheezing. She does have diminished breath sounds. cardiovascular: S1, S2, regular tachycardia. Abdomen: Bowel sounds active. Abdomen is soft without tenderness or mass. Extremities without edema. Const: Vital Signs, click to edit/add: Vital Signs - 24 hr 08/17/21 15:00 08/17/21 19:00 08/17/21 23:00 Temperature 98.5 F 98.5 F 98.3 F Pulse Rate [Bilate ral Dorsalis Pedis ] 107 H 107 H 107 H Pulse Rate [Right Radial] 90 90 90 Respiratory Rate 18 18 22 Blood Pressure [Le ft Arm] 87/63 L 87/63 L 108/77 Pulse Oximetry 96 96 94 08/18/21 03:00 08/18/21 07:00 08/18/21 08:48 Temperature 98 F 97.5 F L Pulse Rate [Bilate ral Dorsalis Pedis ] 104 H 114 H Pulse Rate [Right Radial] 90 Respiratory Rate 22 18 22 Blood Pressure [Le ft Arm] 92/67 91/61 Pulse Oximetry 91 73 L 71 L 08/18/21 09:00 08/18/21 09:31 Temperature 98.5 F Pulse Rate [Bilate ral Dorsalis Pedis ] 108 H 114 H Pulse Rate [Right Radial] Respiratory Rate 22 24 Blood Pressure [Le ft Arm] 98/68 Pulse Oximetry 80 L 88 Documenting provider has reviewed patient's vital signs: yes Labs Labs: Laboratory Results - last 24 hr 08/17/21 08/17/21 08/18/21 11:20 11:20 06:31 WBC 14.36 H 11.57 H RBC 4.08 3.73 L Hgb 13.8 12.7 Hct 39.9 36.4 MCV 98 98 MCH 34 34 MCHC 35 35 RDW Coeff of Amada 12.4 12.8 Plt Count 192 186 Neut % (Auto) 87.7 H 82.9 H Lymph % (Auto) 5.3 L 7.1 L [place] % (Auto) 6.7 9.3 Eos % (Auto) 0.0 0.1 Baso % (Auto) 0.0 0.1 Neut # (Auto) 12.60 H 9.60 H Lymph # (Auto) 0.80 L 0.80 L [place] # (Auto) 1.00 H 1.10 H Eos # (Auto) 0.00 0.00 Baso # (Auto) 0.00 0.00 Abs Immat Gran (auto) 0.05 0.06 D-Dimer Quant (PE/DVT) VBG pH VBG pCO2 VBG pO2 VBG HCO3 Sodium 126 L Potassium 4.0 Chloride 95 L Carbon Dioxide 17 L BUN 4 L Creatinine 0.4 L Estimated Creat Clear 27.17 Glucose 64 Calcium 7.8 L Magnesium Total Bilirubin 1.2 AST 41 H ALT 17 Alkaline Phosphatase 71 Troponin I NT-Pro-B Natriuret Pep Total Protein 5.4 L Albumin 3.2 L 08/18/21 08/18/21 08/18/21 06:31 10:00 10:00 WBC RBC Hgb Hct MCV MCH MCHC RDW Coeff of Amada Plt Count Neut % (Auto) Lymph % (Auto) [place] % (Auto) Eos % (Auto) Baso % (Auto) Neut # (Auto) Lymph # (Auto) [place] # (Auto) Eos # (Auto) Baso # (Auto) Abs Immat Gran (auto) D-Dimer Quant (PE/DVT) VBG pH 7.407 VBG pCO2 37 L VBG pO2 42.3 VBG HCO3 23 Sodium 125 L Potassium 3.7 Chloride 94 L Carbon Dioxide 24 BUN 3 L Creatinine 0.4 L Estimated Creat Clear 27.15 Glucose 94 Calcium 7.8 L Magnesium 1.6 Total Bilirubin AST ALT Alkaline Phosphatase Troponin I < 0.01 L NT-Pro-B Natriuret Pep 557 H Total Protein Albumin 08/18/21 10:00 WBC RBC Hgb Hct MCV MCH MCHC RDW Coeff of Amada Plt Count Neut % (Auto) Lymph % (Auto) [place] % (Auto) Eos % (Auto) Baso % (Auto) Neut # (Auto) Lymph # (Auto) [place] # (Auto) Eos # (Auto) Baso # (Auto) Abs Immat Gran (auto) D-Dimer Quant (PE/DVT) 1.35 H VBG pH VBG pCO2 VBG pO2 VBG HCO3 Sodium Potassium Chloride Carbon Dioxide BUN Creatinine Estimated Creat Clear Glucose Calcium Magnesium Total Bilirubin AST ALT Alkaline Phosphatase Troponin I NT-Pro-B Natriuret Pep Total Protein Albumin
--- NOTE | 2021-08-18 11:46 | PC.NURSE ---
Pt resting at 0730, on 2l o2 at 70%. She was increased to 5l NC, given nebs. Up to chair and encouraged to C&DB. RT consulted to room started on high flow, 30l, 100. Transferred to CCU care and moved rooms. Report given to Jayne ARZATE.
[2021-08-18] MEDS: ENOXAPARIN 30 MG/0.3ML INJ SUBCUT (14:08)
[2021-08-18] MEDS: PIPERACILLIN/TAZOBACTAM 2.25 GM in 0.9 % SODIUM CHLORIDE Mini-bag 100 ML IVPB ×2 (16:49→21:41)
[2021-08-18] MEDS: MORPHINE 10 MG/0.5 ML ORAL SOLN PO (16:50)
--- NOTE | 2021-08-18 18:49 | PC.NURSE ---
shift note: pt to ccu2 via recliner. pt on hi john 2 with sats wavering 74-89%. Pt states she's not sob or having chest wall pain. pt appeared very dusky in complexion. Pt has poor tolerance of minimal activity due to increased HR and sob. LS with course rhonchi with increasing audible upper airway congestion. pt unable to move phlegm with cough. Pt tolerated sitting in recliner this a.m for approx [address] Conner notified of pt's increased HR in 120's. Multiple interactions with respiratory therapy regarding pt's sats and Hi john delivery. Pt was increased to 35L, 100%FIO2,36 degrees. IV patent. Pt medicated with 2.5mg morphine po for rt lat rib pain. Pt refused meals but did sip on ensure shake and had 2 small bites of mashed potatoes,pudding,yogurt. updated pt's brother razia via phone
[2021-08-19] VITALS (7 sets, daily range): BP systolic 99–103; BP diastolic 68–70; PULSE 106–118; RESP 18–22; TEMP 36.3–36.6; O2SAT 78–99
[2021-08-19] MEDS: MORPHINE 10 MG/0.5 ML ORAL SOLN PO ×8 (03:18→15:01)
[2021-08-19] MEDS: ALBUTEROL SULFATE 1.25 MG/3 ML VIAL.NEB NEB (03:41)
[2021-08-19] MEDS: PIPERACILLIN/TAZOBACTAM 2.25 GM in 0.9 % SODIUM CHLORIDE Mini-bag 100 ML IVPB (05:17)
--- NOTE | 2021-08-19 05:53 | PC.NURSE ---
PT PLEASANT AND COOPERATIVE. SOFT SPOKEN AND AGDAAGUX. IS USING THE POCKET TALKER AND THIS HELPS IN COMMUNICATION. AT 0305 PT BECAME RESTLESS AND WAS TRYING TO GET OUT OF BED TO GO THE LIVING ROOM PT THOUGHT SHE WAS AT HOME. HER SATS DROPPED LOW THE LOW TO MID 60'S. TURNED UP THE SETTING ON HER HIGH FLOW TO 40/100, GAVE HER 2.5MG OF ROXINOL AND A ALBUTEROL NEB. AT 0520 BRIONNA I WAS ABLE TO TURN THE HIGH FLOW SETTINGS TO 35/100 AND SHE IS STABLE ON THESE SETTINGS AT THIS TIME. SATS ARE 97%. AND SHE IS RESTING COMFORTABLY. UP TO BEDSIDE COMMODE EARLY IN THE SHIFT AND VOIDED X1. HAS REMAINED AFEBILE.
[2021-08-19 08:40] LABS: HCO3 VBG 32 mmol/L (21-28); PCO2 VBG 54 mmHG (40-50); PO2 VBG 35.6 mmHG (25-47); pH VBG 7.375 (7.32-7.43)
[2021-08-19 08:43] LABS: Basophils Percent Auto 0.1 % (0.0-3.0); Hematocrit 37.6 % (33.0-51.0); Hemoglobin* 12.9 gm/dL (12.0-16.0); Immature Granulocytes Abs Auto 0.18 K/uL (0.00-0.30); Lymphocytes Percent Auto 7.8 % (20-44); Mean Corpuscular HGB Conc 34 gm/dL (32-36); Mean Corpuscular Hemoglobin 34 pg (26-34); Mean Corpuscular Volume 98 fL (80-100); Monocytes Percent Auto 12.2 % (0.0-11.0); Neutrophils Percent Auto 78.7 % (42.0-72.0); Platelet Count* 177 K/uL (140-440); Red Blood Count 3.84 m/uL (4.00-5.20); White Blood Count* 14.56 K/uL (4.50-11.00)
[2021-08-19 08:48] LABS: Slide Review Reflex No
[2021-08-19] MEDS: IPRAT-ALBUT 0.5-2.5 MG/3 ML NEB 1 NEB IH (08:51)
[2021-08-19 09:02] LABS: Chloride* 97 mmol/L (96-114); Potassium* 3.6 mmol/L (3.6-5.1); Sodium* 128 mmol/L (135-149)
[2021-08-19 09:05] LABS: Blood Urea Nitrogen* 3 mg/dL (7-30); Carbon Dioxide* 32 mmol/L (20-32); Creatinine* 0.3 mg/dL (0.5-1.5); Est. Creatinine Clearance* 27.15; Estimated Glomerular Filt Rate 116.19; Glucose* 103 mg/dL (60-115)
[2021-08-19 09:06] LABS: Calcium* 7.9 mg/dL (8.4-10.6); Magnesium* 1.5 mg/dL (1.5-2.6)
[2021-08-19] MEDS: LORazepam 2 MG/ML inj IVP ×2 (11:40→15:48)
--- NOTE | 2021-08-19 14:00 | PC.NURSE ---
Morphine 10mg given for breathing discomfort RR 20 longer expiratory. Cool extremities and mottling to extremities.
--- NOTE | 2021-08-19 14:51 | PM.IMPN1 ---
Progress Note: A&P Assessment and plan (1) Sepsis with acute hypoxic respiratory failure: Status: Acute Assessment and Plan: I call and discuss patient's current status with her brother, Kiel. Kiel came in and we had further discussions. Patient's mother also came in and was also involved in the discussions. Despite our efforts the patient's condition is not improving. If anything her condition is gradually worsening. I once again reviewed with the patient's brother, her power of deputy commonwealth's attorney, and her mother goals of treatment. Both iterated how the patient would not want to be forced to live given her evolving dementia and now need for additional ventilation and oxygenation. We discussed how this could be temporary, however her lungs are not functioning normally and that it is unlikely that she would be able to regain meaningful functional abilities if she were to survive this particular event. They both requested comfort measures only with DNR DNI status. They declined any additional disease directed diagnostic or interventional efforts. I discussed the above with the patient and she is in total agreement. She has no hesitation whatsoever. Appears to understand. She indicates she would like to be kept comfortable only. We stop the IV piperacillin and tazobactam. We stop all IV fluids. Comfort measures added. (2) Pneumonia: Status: Acute Assessment and Plan: As specified above, we stop IV piperacillin and tazobactam. We change the paradigm of care to comfort measures only with DNR DNI resuscitation status. (3) Aspiration into lower respiratory tract: Status: Acute Assessment and Plan: Comfort measures only. (4) COPD (chronic obstructive pulmonary disease): Status: Acute Assessment and Plan: Continue with comfort measures only. (5) At risk for venous thromboembolism (VTE): Status: Acute Assessment and Plan: Continue with comfort measures only. (6) Dementia: Problem details: [place] 02/15 in July 2021 Status: Acute Assessment and Plan: Continue supportive efforts including from family in hospital staff. (7) Frailty syndrome in geriatric patient: Status: Acute Assessment and Plan: Comfort measures only. (8) Smoking: Status: Acute Assessment and Plan: Comfort measures only. (9) Alcohol abuse: Status: Acute Assessment and Plan: No evidence of withdrawal. Continue with comfort measures only. (10) Malnutrition: Status: Acute (11) Vertebral compression fracture: Status: Acute Assessment and Plan: Pain management efforts. (12) Left rib fracture: Problem details: clinically suspected and radiographically suspected Status: Acute Assessment and Plan: Pain management efforts. (13) Osteoporosis: Status: Acute Assessment and Plan: Comfort measures only. (14) Hypomagnesemia: Status: Acute Assessment and Plan: Comfort measures only. (15) Hypokalemia: Status: Acute Assessment and Plan: Comfort measures only. (16) Hyponatremia: Status: Acute Assessment and Plan: Comfort measures only. (17) At risk for falls: Status: Acute Assessment and Plan: Comfort measures only. Plan Patient's brother and mother are stay nearby to support the patient. Patient family members know and understand that without the high-flow oxygen support it is likely that the patient will pass away in a relatively short period of time, perhaps hours today's. Time Spent With Patient Total time spent: 50 minutes Subjective Time Seen by Provider: 07:30 Date Seen: 08/19/21 Interval history: Hospital day 4. Patient has been on high-flow oxygen all night, setting of 35 liters/minute with an FiO2 of 100%. Has been saturating between mid 60s and low 80s. Systolic blood pressures have ranged from 70-90 mmHg. Intermittent coughing paroxysms. Coughs are very soft, not sufficient to clear the secretions in her airways. At times she is able to express a sense of discomfort. Other times she expresses sense of anxiety. Acknowledges a sense of dyspnea at times. Still has chest pain on the side where she has a rib fractures. Has had no interest at all in eating or drinking. Denies nausea or vomiting. Generally quite weak. Requires assist with movements. Has had no fevers, rigors, diaphoresis. Exam Narrative: Exam Narrative: Asleep. Arousable. When awake she is alert. Oriented to self only. Later when her mother and brother come to see her it is evident that she recognizes them. Appears sick. Appears tired. Cooperative. Friendly. Thin, frail, cachectic. Loose, sagging skin on a thin, frail body. Bony prominences on face, neck, chest. Thin arms and legs. Profoundly kyphotic. Already has mottling on her legs this morning when I see her. Cyanosis of fingers. Skin is thin, frail, intact. Lungs with bilateral rales. Scattered rhonchi. Right-sided end inspiratory wheezing. Heart tones distant but regular rhythm. Normal S1-S2. Systolic murmur , soft. Abdomen is thin. Active bowel sounds. Soft and nontender. Palpable radial pulses bilateral upper extremities and dorsalis pedis of lower extremities bilaterally. Const: Vital Signs, click to edit/add: Vital Signs - 24 hr 08/18/21 15:00 08/18/21 16:40 08/18/21 18:43 Temperature 98.8 F Pulse Rate 113 H Pulse Rate [Bilate ral Dorsalis Pedis ] 122 H Pulse Rate [Right Radial] Respiratory Rate 18 22 Blood Pressure [Le ft Arm] 108/77 Pulse Oximetry 89 08/18/21 20:00 08/18/21 23:00 08/19/21 00:00 Temperature 98.7 F 97.9 F Pulse Rate Pulse Rate [Bilate ral Dorsalis Pedis ] 107 H Pulse Rate [Right Radial] 118 H 118 H 107 H Respiratory Rate 22 22 22 Blood Pressure [Le ft Arm] 91/67 99/68 Pulse Oximetry 100 99 08/19/21 01:20 08/19/21 04:00 08/19/21 08:00 Temperature 97.3 F L Pulse Rate 118 H Pulse Rate [Bilate ral Dorsalis Pedis ] 106 H Pulse Rate [Right Radial] 112 H 106 H Respiratory Rate 22 18 Blood Pressure [Le ft Arm] 103/70 Pulse Oximetry 95 Labs Labs: Laboratory Results - last 24 hr 08/19/21 08/19/21 08/19/21 08:35 08:35 08:35 WBC 14.56 H RBC 3.84 L Hgb 12.9 Hct 37.6 MCV 98 MCH 34 MCHC 34 RDW Coeff of Amada 13.0 Plt Count 177 Neut % (Auto) 78.7 H Lymph % (Auto) 7.8 L Baker % (Auto) 12.2 H Eos % (Auto) 0.0 Baso % (Auto) 0.1 Neut # (Auto) 11.50 H Lymph # (Auto) 1.10 Baker # (Auto) 1.80 H Eos # (Auto) 0.00 Baso # (Auto) 0.00 Abs Immat Gran (auto) 0.18 VBG pH 7.375 VBG pCO2 54 H VBG pO2 35.6 VBG HCO3 32 H Sodium 128 L Potassium 3.6 Chloride 97 Carbon Dioxide 32 BUN 3 L Creatinine 0.3 L Estimated Creat Clear 27.15 Glucose 103 Calcium 7.9 L Magnesium 1.5
--- NOTE | 2021-08-19 16:48 | PM.DN ---
Pronouncement Note Date and Time of Date of : 08/19/21 Time of : 16:40 PCOD Preliminary cause of : Sepsis with acute hypoxic respiratory failure Contributing Factors (1) Sepsis with acute hypoxic respiratory failure: (2) Pneumonia: (3) Aspiration into lower respiratory tract: (4) COPD (chronic obstructive pulmonary disease): (5) At risk for venous thromboembolism (VTE): (6) Dementia: (7) Frailty syndrome in geriatric patient: (8) Smoking: (9) Alcohol abuse: (10) Malnutrition: (11) Vertebral compression fracture: (12) Left rib fracture: (13) Osteoporosis: (14) Hypomagnesemia: (15) Hypokalemia: (16) Hyponatremia: (17) At risk for falls: Summary Additional details: Patient admitted for sepsis and acute hypoxic respiratory failure with known COPD history. Placed on comfort cares, comfortably at 16:40. Additional Data Confirmation of : no pulse, no respirations and no heart sounds Family: contacted Attending physician: Luz Marina Coelho MD Time Seen by Provider: 16:44 Date Seen: 08/19/21 Was code activated?: No Autopsy requested?: No securities compliance examiner notified?: No Organ bank notified?: No
--- NOTE | 2021-08-19 17:02 | PC.NURSE ---
Addendum entered by Verna Chairez RN 08/19/21 17:18: Addendum: [facility] reference number is #[id number]. Original Note: [facility] consulted @ [facility] . Per staff member andrea Ojeda. not eligible for tissue or organ donation. Primary nurse updated.
--- NOTE | 2021-08-19 19:21 | PC.NURSE ---
shift note: pt medicated for breathing and comfort measures with prn roxanol and IV ativan. hi john removed @1145. Pt t&r for comfort. oral cares provided q1 hr. Pt @ 1640. Dr. Coelho confirmed. IV dc'd intact. Pt placed supine. Charge nurse notified.
--- NOTE | 2021-08-22 12:12 | P.DS_ITS ---
DS: Providers Provider Date of admission: 08/16/21 22:48 Primary care physician: Baltazar Rojo MD Admitting Clinician: Alexx Fisher MD Consults: 08/16/21 21:03 Consult to Respiratory Therapy [CONS] Routine Comment: Reason(s) for RT Consult:: Consult 08/16/21 21:08 Consult to Occupational Therapy [CONS] Routine Comment: Reason(s) for OT Consult:: Evaluate and Treat Any Restrictions?:: No Restrictions Consult to Physical Therapy [CONS] Routine Comment: Reason(s) for PT Consult:: Evaluate and Treat Any Restrictions?:: No Restrictions Consult to [employer] [CONS] Routine Comment: Reason for Consult:: Social Service Consult Discharge Planning Needs 08/17/21 00:56 Consult to Occupational Therapy [CONS] Routine Comment: Reason(s) for OT Consult:: Difficulty Managing ADLs Any Restrictions?:: No Restrictions Consult to Physical Therapy [CONS] Routine Comment: Reason(s) for PT Consult:: Evaluate and Treat Any Restrictions?:: No Restrictions Attending Physician on discharge: Alexx Fisher MD DS: Diagnosis Discharge Diagnosis (1) Pneumonia: Status: Acute (2) Sepsis with acute hypoxic respiratory failure: Status: Acute (3) COPD (chronic obstructive pulmonary disease): Status: Acute (4) Aspiration into lower respiratory tract: Status: Acute (5) Dementia: Status: Acute Problem details: [place] 02/15 in July 2021 (6) Frailty syndrome in geriatric patient: Status: Acute (7) Alcohol abuse: Status: Acute (8) Hyponatremia: Status: Acute (9) Hypokalemia: Status: Acute (10) Hypomagnesemia: Status: Acute (11) Osteoporosis: Status: Acute (12) Left rib fracture: Status: Acute Problem details: clinically suspected and radiographically suspected (13) At risk for falls: Status: Acute (14) Smoking: Status: Acute (15) Protein-calorie malnutrition, moderate: Status: Acute DS: Summary Hospital Course Hospital Course: 65-year-old woman presented to the hospital with acute hypoxemic respiratory failure with hypercapnia. On presentation she was a chronic active smoker. She has advanced COPD. Initially attempted stabilization with low-flow oxygen but that was insufficient. Changed to OxyMask but that was insufficient. Eventually transition to high-flow oxygen with FiO2 of 100% and oxygen flow rate of 35 liters/minute. This improved her oxygenation status temporarily. She was found to have pneumonia. CT scan of the chest suggested she has aspirate material in her airways. Seemingly this is acute on chronic. She was started on treatment for presumed pneumonia. Treated with broad-spectrum IV antibiotics. Over the course of about 24 hours her condition became increasingly difficult to manage as such. We were unable to maintain her oxygen saturations on maximum oxygen support on the high-flow system. Her systolic blood pressures dropped into the 60s. She was not mentating as well. Discussion was undertaken with the patient's brother, Kiel, who is her power of estate planning attorney for health, as well as the patient's mother. Certainly we also discussed the situation with the patient. Initially the patient had indicated a desire for all measures to be taken to keep her alive. As her condition devolved she clearly changed her mind and unhesitatingly indicated a desire for comfort measures only with DNR DNI resuscitation status. Patient's brother and mother concurred with the patient's expressed desire, noting that they were uncomfortable with the patient's previous expressed desires to be kept alive. We changed the paradigm of her care to comfort measures only, with DNR DNI resuscitation status. After achieving modicum level of comfort with the use of morphine and lorazepam, when the patient family indicated they were ready, we removed her oxygen support. Patient within a few hours as shankar pated. Patient was kept comfortable per her request. She naturally. Patient's brother and mother were very satisfied with the outcome, mainly that the patient comfortably. Status at Discharge Cognitive/behavioral status at discharge: The patient while in the hospital. Time Spent with Patient Time attestation: Total time spent providing and/or coordinating discharge services: Discharge Plan Discharge Disposition: Date of Admission: 08/16/21 22:48 Attending Provider on Discharge: Luz Marina Coelho Primary Care Provider: Baltazar Rojo Date/Time: 08/19/21 16:40
== END 2021-08-19 16:40 | disposition expired | DRG 871 ==
LOC: ED 21:29 → MEDSURG 22:48
PROVIDERS: Admitting Provider Family Medicine; Emergency Provider Emergency Medicine Emergency Medical Services; PCP Family Medicine; Visit Provider Family Medicine
DX: A41.9 Sepsis, unspecified organism (principal); J96.01 Acute respiratory failure with hypoxia; J69.0 Pneumonitis due to inhalation of food and vomit; J96.02 Acute respiratory failure with hypercapnia; E87.1 Hypo-osmolality and hyponatremia; E44.0 Moderate protein-calorie malnutrition; R62.7 Adult failure to thrive; G62.9 Polyneuropathy, unspecified; S22.32XD Fracture of one rib, left side, subsequent encounter for fracture with routine healing; M21.371 Foot drop, right foot; F17.210 Nicotine dependence, cigarettes, uncomplicated; F10.10 Alcohol abuse, uncomplicated; E87.6 Hypokalemia; E83.42 Hypomagnesemia; F03.90 Unspecified dementia, unspecified severity, without behavioral disturbance, psychotic disturbance, mood disturbance, and anxiety; M81.0 Age-related osteoporosis without current pathological fracture; M48.50XD Collapsed vertebra, not elsewhere classified, site unspecified, subsequent encounter for fracture with routine healing
CPT/HCPCS: 36415; 71045; 71250; 80048; 80053; 80076; 80306; 81003; 81015; 82140; 82803; 83735; 83880; 84145; 84295; 84443; 84484; 85025; 85379; 87086; 87635; 93005; 93306; 93308; 93321; 93325; 94640; 94664; 97116; 97161; 97165; 97530; 97535; 99285; A9153; A9270; J0696; J1650; J2060; J2543; J2920; J3475; J7030